=== PATIENT | male | born 1940 | race Caucasian/White ===

== ENCOUNTER → 2016-12-24 | Outpatient (CLI) | payer MEDICARE ==
[2016-12-24 09:54] LABS: HEMOGLOBIN 13.5 gm/dl (14.0-17.5); RED BLOOD COUNT 4.13 M/UL (4.20-5.50); WHITE BLOOD COUNT 6.5 K/UL (4.5-11.0)
[2016-12-24 11:02] LABS: BUN/CREATININE RATIO 26 (0-10)
== END ==
LOC: LAB 09:01
PROVIDERS: Nurse Practitioner
DX: I48.91 Unspecified atrial fibrillation (principal); E11.9 Type 2 diabetes mellitus without complications; R53.83 Other fatigue
CPT/HCPCS: 36415; 80053; 80061; 82043; 83036; 84436; 84443; 84480; 85025

== ENCOUNTER → 2017-01-28 | Outpatient (CLI) | payer MEDICARE ==
[2017-01-28 08:06] LABS: HEMOGLOBIN 14.1 gm/dl (14.0-17.5); RED BLOOD COUNT 4.43 M/UL (4.20-5.50); WHITE BLOOD COUNT 5.5 K/UL (4.5-11.0)
== END ==
LOC: LAB 07:43
PROVIDERS: Nurse Practitioner
DX: D64.9 Anemia, unspecified (principal)
CPT/HCPCS: 36415; 85025

== ENCOUNTER → 2020-12-10 | Outpatient (CLI) | payer MEDICARE ==
[2020-12-10 10:22] LABS: HEMOGLOBIN 13.9 gm/dl (14.0-17.5); RED BLOOD COUNT 4.34 M/UL (4.20-5.50); WHITE BLOOD COUNT 5.8 K/UL (4.5-11.0)
[2020-12-10 10:41] LABS: BUN/CREATININE RATIO 17 (0-10)
[2020-12-11 08:14] LABS: VITAMIN D, 25-HYDROXY 37.9 ng/mL (30.0-100.0)
[2020-12-11 13:09] LABS: THYROXINE (T4) 5.7 ug/dL (4.5-12.0)
[2020-12-11 15:13] LABS: CREATININE, URINE 26.7 mg/dL (Not Estab.)
== END ==
LOC: LAB 08:40
PROVIDERS: Nurse Practitioner Family
DX: E11.9 Type 2 diabetes mellitus without complications (principal); R53.83 Other fatigue; E78.5 Hyperlipidemia, unspecified; I10 Essential (primary) hypertension; E55.9 Vitamin D deficiency, unspecified
CPT/HCPCS: 36415; 80053; 80061; 82043; 82570; 83036; 84436; 84443; 84480; 85025

== ENCOUNTER → 2021-03-08 | Outpatient (CLI) | payer MEDICARE ==
[2021-03-08 11:01] LABS: HEMOGLOBIN 14.1 gm/dl (14.0-17.5); RED BLOOD COUNT 4.37 M/UL (4.20-5.50); WHITE BLOOD COUNT 8.7 K/UL (4.5-11.0)
[2021-03-08 11:19] LABS: BUN/CREATININE RATIO 18 (0-10)
[2021-03-09 08:14] LABS: THYROXINE (T4) 4.6 ug/dL (4.5-12.0); VITAMIN D, 25-HYDROXY 31.6 ng/mL (30.0-100.0)
== END ==
LOC: LAB 08:55
PROVIDERS: Nurse Practitioner
DX: E11.9 Type 2 diabetes mellitus without complications (principal); I10 Essential (primary) hypertension; E78.5 Hyperlipidemia, unspecified; E56.9 Vitamin deficiency, unspecified; E03.9 Hypothyroidism, unspecified; Z12.5 Encounter for screening for malignant neoplasm of prostate
CPT/HCPCS: 36415; 80053; 81001; 82043; 82570; 83036; 84436; 84443; 84480; 85025; G0103

== ENCOUNTER → 2021-09-04 | Outpatient (CLI) | payer MEDICARE ==
[2021-09-04 11:11] LABS: HEMOGLOBIN 13.9 gm/dl (14.0-17.5); RED BLOOD COUNT 4.43 M/UL (4.20-5.50); WHITE BLOOD COUNT 6.3 K/UL (4.5-11.0)
[2021-09-04 11:53] LABS: BUN/CREATININE RATIO 17 (0-10)
[2021-09-05 08:14] LABS: THYROXINE (T4) 5.2 ug/dL (4.5-12.0); VITAMIN D, 25-HYDROXY 36.1 ng/mL (30.0-100.0)
== END ==
LOC: LAB 09:26
PROVIDERS: Nurse Practitioner
DX: I10 Essential (primary) hypertension (principal); I48.91 Unspecified atrial fibrillation; N40.1 Benign prostatic hyperplasia with lower urinary tract symptoms; E11.9 Type 2 diabetes mellitus without complications; E78.5 Hyperlipidemia, unspecified; T78.40XA Allergy, unspecified, initial encounter; E55.9 Vitamin D deficiency, unspecified; R53.83 Other fatigue
CPT/HCPCS: 36415; 80053; 80061; 81001; 83036; 84436; 84443; 84480; 85025

== ENCOUNTER → 2022-02-15 | Outpatient (CLI) | payer MEDICARE ==
[2022-02-15 08:27] LABS: HEMOGLOBIN 13.1 gm/dl (14.0-17.5); RED BLOOD COUNT 4.22 M/UL (4.20-5.50); WHITE BLOOD COUNT 5.9 K/UL (4.5-11.0)
[2022-02-15 08:31] LABS: BUN/CREATININE RATIO 19 (0-10)
== END ==
LOC: LAB 07:15
PROVIDERS: Nurse Practitioner
DX: E11.9 Type 2 diabetes mellitus without complications (principal); I10 Essential (primary) hypertension; N40.1 Benign prostatic hyperplasia with lower urinary tract symptoms; I48.91 Unspecified atrial fibrillation; R97.20 Elevated prostate specific antigen [PSA]
CPT/HCPCS: 80053; 80061; 81001; 83036; 85025; G0103

== ENCOUNTER → 2022-03-14 | Outpatient (CLI) | payer MEDICARE | LOC: US 13:26 | DX: R22.41 Localized swelling, mass and lump, right lower limb (principal) | CPT/HCPCS: 93971 ==

== ENCOUNTER → 2022-03-28 | Outpatient (CLI) | payer MEDICARE | LOC: RAD 07:55 | DX: M79.646 Pain in unspecified finger(s) (principal); M19.042 Primary osteoarthritis, left hand; M19.041 Primary osteoarthritis, right hand | CPT/HCPCS: 73120 ==

== ENCOUNTER → 2022-05-06 | Outpatient (CLI) | payer MEDICARE ==
[2022-05-06 08:20] LABS: HEMOGLOBIN 12.8 gm/dl (14.0-17.5); RED BLOOD COUNT 4.18 M/UL (4.20-5.50); WHITE BLOOD COUNT 5.9 K/UL (4.5-11.0)
[2022-05-06 08:47] LABS: BUN/CREATININE RATIO 19 (0-10)
[2022-05-07 08:14] LABS: THYROXINE (T4) 5.4 ug/dL (4.5-12.0)
== END ==
LOC: LAB 07:16
PROVIDERS: Nurse Practitioner
DX: E11.9 Type 2 diabetes mellitus without complications (principal); I10 Essential (primary) hypertension; I48.91 Unspecified atrial fibrillation; E78.5 Hyperlipidemia, unspecified; N40.1 Benign prostatic hyperplasia with lower urinary tract symptoms; T78.40XA Allergy, unspecified, initial encounter
CPT/HCPCS: 36415; 80053; 80061; 81001; 83036; 84436; 84443; 84480; 85025

== ENCOUNTER 2022-05-28 13:23 | Emergency (ER) | payer MEDICARE ==
[~2022-05-28] VITALS: Ht 180.3 cm; Wt 84.4 kg
== END 2022-05-28 17:37 | disposition home or self-care (01) ==
LOC: ER1 13:23
DX: U07.1 COVID-19 (principal); R60.0 Localized edema; E11.9 Type 2 diabetes mellitus without complications; Z95.1 Presence of aortocoronary bypass graft
CPT/HCPCS: 99283; M0243

== ENCOUNTER → 2022-07-03 | Outpatient (CLI) | payer MEDICARE | LOC: LAB 11:04 | DX: R82.5 Elevated urine levels of drugs, medicaments and biological substances (principal) | CPT/HCPCS: 81001 ==